=== PATIENT | male | born 1935 | race Caucasian/White ===

== ENCOUNTER 2018-10-13 13:11 | Inpatient (IN) | payer MEDICARE, OTHER ==
[2018-10-13] VITALS (23 sets, daily range): BP systolic 70–135; BP diastolic 52–86
[~2018-10-13] VITALS: Ht 175.3 cm; Wt 81.9 kg
[2018-10-13] MEDS ORDERED: LEVOTHYROXIN125 MCG PO (13:37)
[2018-10-13 14:02] LABS: HEMATOCRIT 42.3 % (39.0-50.0); IMMATURE GRANULOCYTES 1.2 % (0.0-5.0); MEAN CELL VOLUME 99.5 fL CALC (80.0-100.0); MEAN CORPUSCULAR HGB 32.9 pG CALC (26.0-32.0); MEAN CORPUSCULAR HGB CONC 33.1 g/L CALC (32.0-36.0); NEUT# 6.4 thou/uL (1.82-7.42); RED BLOOD COUNT 4.25 mill/uL (4.70-6.10); RED CELL DISTRI WIDTH 15.2 % (11.5-15.5)
[2018-10-13 14:16] LABS: ACT PARTIAL THROMBO TIME 27.2 SECONDS (20.0-32.5); INTERNATIONAL NORMALIZED RATIO 1.1 RATIO (0.7-1.3); PROTHROMBIN TIME 11.1 SECONDS (9.0-12.5)
[2018-10-13 14:18] LABS: ALBUMIN 4.1 g/dL (3.2-5.0); AMYLASE 59 u/l (30-110); BUN 19 mg/dL (8-23); BUN/CREATININE RATIO 26 (12-20 (CALC)); CARBON DIOXIDE 23 mmol/l (22-30); CHLORIDE 106 mmol/l (95-108); CREATININE 0.7 mg/dL (0.7-1.3); GFR > 60 ML/MIN (>=60 (CALC)); GFR FOR AFR.AMER. > 60 ML/MIN (>=60 (CALC)); LIPASE 39 u/l (23-300); MAGNESIUM 2.1 mg/dL (1.6-2.3); SGOT/AST 32 u/l (19-48); SODIUM 141 mmol/l (137-146); TOTAL PROTEIN 7.7 g/dL (6.3-8.2)
[2018-10-13 14:22] LABS: ALKALINE PHOSPHATASE 131 u/l (38-126); ANION GAP 16 (6-22 (CALC)); BILIRUBIN, TOTAL 1.2 mg/dL (0.0-1.4); POTASSIUM 4.4 mmol/l (3.5-5.1)
[2018-10-13 14:29] LABS: MYOGLOBIN 33 ng/mL (0 - 121)
[2018-10-13 14:48] LABS: TSH, 3RD GENERATION 0.97 uIU/mL (0.47 - 4.68)
[2018-10-13 16:19] LABS: URINE BLOOD DIPSTICK NEGATIVE (NEGATIVE); URINE GLUCOSE - DIPSTICK NEGATIVE (NEGATIVE); URINE KETONE 15 mg/dL (NEGATIVE); URINE LEUK ESTERASE NEGATIVE (NEGATIVE); URINE NITRITE - DIPSTICK NEGATIVE (Negative); URINE PH 5.5 (4.5-8.0); URINE PROTEIN - DIPSTICK TRACE mg/dL (NEG-TRACE); URINE SPECIFIC GRAVITY >=1.030
[2018-10-13 16:22] LABS: URINE BILIRUBIN - DIPSTICK NEGATIVE (NEGATIVE); URINE COLOR AMBER
[2018-10-13 19:47] LABS: URINE BLOOD DIPSTICK NEGATIVE (NEGATIVE); URINE COLOR YELLOW; URINE GLUCOSE - DIPSTICK NEGATIVE (NEGATIVE); URINE KETONE TRACE mg/dL (NEGATIVE); URINE LEUK ESTERASE NEGATIVE (NEGATIVE); URINE NITRITE - DIPSTICK NEGATIVE (Negative); URINE PROTEIN - DIPSTICK TRACE mg/dL (NEG-TRACE); URINE SPECIFIC GRAVITY >=1.030
[2018-10-13 19:48] LABS: URINE BILIRUBIN - DIPSTICK NEGATIVE (NEGATIVE)
[2018-10-14] VITALS (30 sets, daily range): BP systolic 77–139; BP diastolic 45–90
[2018-10-14 05:01] LABS: HEMATOCRIT 37.7 % (39.0-50.0); HEMOGLOBIN 12.3 g/dl (14.0-18.0); IMMATURE GRANULOCYTES 1.2 % (0.0-5.0); MEAN CELL VOLUME 99.2 fL CALC (80.0-100.0); MEAN CORPUSCULAR HGB 32.4 pG CALC (26.0-32.0); MEAN CORPUSCULAR HGB CONC 32.6 g/L CALC (32.0-36.0); NEUT# 5.02 thou/uL (1.82-7.42); RED BLOOD COUNT 3.8 mill/uL (4.70-6.10); RED CELL DISTRI WIDTH 14.9 % (11.5-15.5)
[2018-10-14 05:11] LABS: ALKALINE PHOSPHATASE 95 u/l (38-126); ANION GAP 12 (6-22 (CALC)); BILIRUBIN, TOTAL 0.8 mg/dL (0.0-1.4); BUN 16 mg/dL (8-23); BUN/CREATININE RATIO 30 (12-20 (CALC)); CARBON DIOXIDE 21 mmol/l (22-30); CHLORIDE 112 mmol/l (95-108); CREATININE 0.5 mg/dL (0.7-1.3); GFR > 60 ML/MIN (>=60 (CALC)); GFR FOR AFR.AMER. > 60 ML/MIN (>=60 (CALC)); LIPASE 44 u/l (23-300); POTASSIUM 3.8 mmol/l (3.5-5.1); SGOT/AST 18 u/l (19-48); SODIUM 140 mmol/l (137-146)
[2018-10-14 05:16] LABS: AMYLASE < 30 u/l (30-110)
[2018-10-14 05:17] LABS: ALBUMIN 2.9 g/dL (3.2-5.0); TOTAL PROTEIN 5.7 g/dL (6.3-8.2)
[2018-10-15] VITALS (12 sets, daily range): BP systolic 98–128; BP diastolic 57–88
[2018-10-15 05:16] LABS: HEMATOCRIT 36.2 % (39.0-50.0); IMMATURE GRANULOCYTES 1.2 % (0.0-5.0); MEAN CELL VOLUME 100.6 fL CALC (80.0-100.0); MEAN CORPUSCULAR HGB 33.3 pG CALC (26.0-32.0); MEAN CORPUSCULAR HGB CONC 33.1 g/L CALC (32.0-36.0); NEUT# 4.79 thou/uL (1.82-7.42); RED BLOOD COUNT 3.6 mill/uL (4.70-6.10)
[2018-10-15 05:32] LABS: ALBUMIN 2.8 g/dL (3.2-5.0); ALKALINE PHOSPHATASE 87 u/l (38-126); ANION GAP 11 (6-22 (CALC)); BILIRUBIN, TOTAL 0.7 mg/dL (0.0-1.4); BUN 12 mg/dL (8-23); BUN/CREATININE RATIO 26 (12-20 (CALC)); CARBON DIOXIDE 18 mmol/l (22-30); CHLORIDE 114 mmol/l (95-108); CREATININE 0.5 mg/dL (0.7-1.3); GFR > 60 ML/MIN (>=60 (CALC)); GFR FOR AFR.AMER. > 60 ML/MIN (>=60 (CALC)); POTASSIUM 3.5 mmol/l (3.5-5.1); SGOT/AST 15 u/l (19-48); SODIUM 139 mmol/l (137-146); TOTAL PROTEIN 5.6 g/dL (6.3-8.2)
[2018-10-16] VITALS (14 sets, daily range): BP systolic 113–133; BP diastolic 70–99
[2018-10-16 04:43] LABS: HEMATOCRIT 38.3 % (39.0-50.0); HEMOGLOBIN 12.3 g/dl (14.0-18.0); IMMATURE GRANULOCYTES 1.4 % (0.0-5.0); MEAN CELL VOLUME 101.1 fL CALC (80.0-100.0); MEAN CORPUSCULAR HGB 32.5 pG CALC (26.0-32.0); MEAN CORPUSCULAR HGB CONC 32.1 g/L CALC (32.0-36.0); NEUT# 5.54 thou/uL (1.82-7.42); RED BLOOD COUNT 3.79 mill/uL (4.70-6.10); RED CELL DISTRI WIDTH 14.9 % (11.5-15.5)
[2018-10-16 05:09] LABS: ALBUMIN 2.8 g/dL (3.2-5.0); ALKALINE PHOSPHATASE 85 u/l (38-126); ANION GAP 12 (6-22 (CALC)); BILIRUBIN, TOTAL 0.8 mg/dL (0.0-1.4); BUN 8 mg/dL (8-23); BUN/CREATININE RATIO 17 (12-20 (CALC)); CARBON DIOXIDE 20 mmol/l (22-30); CHLORIDE 113 mmol/l (95-108); CREATININE 0.5 mg/dL (0.7-1.3); GFR > 60 ML/MIN (>=60 (CALC)); GFR FOR AFR.AMER. > 60 ML/MIN (>=60 (CALC)); MAGNESIUM 1.9 mg/dL (1.6-2.3); POTASSIUM 3.9 mmol/l (3.5-5.1); SGOT/AST 20 u/l (19-48); SODIUM 141 mmol/l (137-146); TOTAL PROTEIN 5.6 g/dL (6.3-8.2)
[2018-10-17] VITALS (12 sets, daily range): BP systolic 128–151; BP diastolic 83–98
[2018-10-18] VITALS (12 sets, daily range): BP systolic 124–165; BP diastolic 78–99
[2018-10-19] VITALS (12 sets, daily range): BP systolic 117–157; BP diastolic 82–94
== END 2018-10-19 21:20 | disposition hospice, inpatient (51) | DRG 177 ==
LOC: ED 13:11 → ED-I 15:45 → ED 15:54 → ICU 15:55
PROVIDERS: Family Medicine; ADMIT Internal Medicine Nephrology; ATTEND Internal Medicine Nephrology
PROC: 0T9B70Z Drainage of Bladder with Drainage Device, Via Natural or Artificial Opening (ICD-10-PCS; principal; 2018-10-13)
DX: J69.0 Pneumonitis due to inhalation of food and vomit (principal); I26.99 Other pulmonary embolism without acute cor pulmonale; I48.92 Unspecified atrial flutter; J44.1 Chronic obstructive pulmonary disease with (acute) exacerbation; I48.2 Chronic atrial fibrillation; N40.0 Benign prostatic hyperplasia without lower urinary tract symptoms; F10.10 Alcohol abuse, uncomplicated; R62.7 Adult failure to thrive; R13.10 Dysphagia, unspecified; E89.0 Postprocedural hypothyroidism; I95.2 Hypotension due to drugs; T46.1X5A Adverse effect of calcium-channel blockers, initial encounter; I25.9 Chronic ischemic heart disease, unspecified; F17.210 Nicotine dependence, cigarettes, uncomplicated; Y84.2 Radiological procedure and radiotherapy as the cause of abnormal reaction of the patient, or of later complication, without mention of misadventure at the time of the procedure; Z51.5 Encounter for palliative care; Z66 Do not resuscitate; Z78.1 Physical restraint status; Z92.3 Personal history of irradiation; Z85.51 Personal history of malignant neoplasm of bladder; Z85.850 Personal history of malignant neoplasm of thyroid; Z96.643 Presence of artificial hip joint, bilateral; Z68.21 Body mass index [BMI] 21.0-21.9, adult
CPT/HCPCS: J0692; J1650; J2060; S0166